=== PATIENT | male | born 1970 | race Caucasian/White ===

== ENCOUNTER 2020-08-23 19:34 | Emergency (ER) | payer OTHER ==
[~2020-08-23] VITALS: Ht 177.8 cm; Wt 86.8 kg
[2020-08-23 20:34] LABS: HEMATOCRIT 45.4 % (42.0-52.0); HEMOGLOBIN 15.7 g/dl (13.5-17.5); MEAN CORPUSCULAR HEMOGLOBIN 30.7 pg (27.0-33.0); MEAN CORPUSCULAR HGB CONC 34.6 g/dl (32.0-36.5); MEAN CORPUSCULAR VOLUME 88.7 fl (80.0-96.0); PLATELET COUNT, AUTOMATED 213 10^3/uL (150-450); RED BLOOD COUNT 5.12 10^6/uL (4.30-6.10); WHITE BLOOD COUNT 10.3 10^3/uL (4.0-10.0)
[2020-08-23 21:07] LABS: AMPHETAMINES LEVEL URINE NEGATIVE (NEGATIVE); BARBITURATES URINE NEGATIVE (NEGATIVE); BENZODIAZEPINES URINE NEGATIVE (NEGATIVE); CANNABINOIDS URINE NEGATIVE (NEGATIVE); COCAINE METABOLITE URINE NEGATIVE (NEGATIVE); METHADONE URINE NEGATIVE (NEGATIVE); OPIATES URINE NEGATIVE (NEGATIVE); PHENCYCLIDINE URINE NEGATIVE (NEGATIVE)
[2020-08-23 21:08] LABS: ACETAMINOPHEN LEVEL < 2.0 UG/ML (10.0-30.0); ALBUMIN 4.2 GM/DL (3.2-5.2); ALT/SGPT 45 U/L (12-78); BILIRUBIN,DIRECT 0.2 MG/DL (0.0-0.2); BILIRUBIN,TOTAL 0.9 MG/DL (0.2-1.0); BLOOD UREA NITROGEN 16 MG/DL (7-18); CALCIUM LEVEL 9.2 MG/DL (8.5-10.1); CARBON DIOXIDE LEVEL 28 MEQ/L (21-32); CHLORIDE LEVEL 104 MEQ/L (98-107); CREATININE FOR GFR 1.09 MG/DL (0.70-1.30); ETHYL ALCOHOL (ETHANOL) < 0.003 % (0.000-0.010); GLOMERULAR FILTRATION RATE > 60.0 (>60); GLUCOSE, FASTING 110 MG/DL (70-100); POTASSIUM SERUM 4.1 MEQ/L (3.5-5.1); SALICYLATE LEVEL < 1.7 MG/DL (5.0-30.0); SODIUM LEVEL 139 MEQ/L (136-145); TOTAL PROTEIN 7.3 GM/DL (6.4-8.2)
[2020-08-23 23:06] VITALS: BP 143/87
== END 2020-08-23 23:07 | disposition home or self-care (01) ==
LOC: M ED 19:34
DX: Z04.6 Encounter for general psychiatric examination, requested by authority (principal); F43.10 Post-traumatic stress disorder, unspecified; Z88.0 Allergy status to penicillin; Z88.1 Allergy status to other antibiotic agents

== ENCOUNTER → 2021-02-23 | Outpatient (CLI) | payer OTHER ==
--- NOTE | 2021-02-24 14:14 | SLEEPCENT ---
DATE: 02/23/2021 ORDERED BY: BENNETT Sol Nocturnal polysomnography was performed for the titration of pressure therapy in this patient with obstructive sleep apnea syndrome, apnea-hypopnea index of 62.7. For testing a ResMed AirFit F20 full face mask of large size was used, 4 cm of water pressure were applied to the circuit, and the lights were extinguished. Eight hours and 15 minutes of data were reviewed. There were 447.5 minutes of sleep identified. Sleep latency was normal at 12 minutes. REM latency was mildly prolonged at 136 minutes. Sleep architecture once established was good. There were three REM cycles. Overall sleep efficiency was 90.4%. The electrocardiogram showed a sinus rhythm with an average heart rate of 70 beats per minute. EEG showed normal waveforms for wake and sleep. Respiratory events were fully palliated with CPAP at a pressure of 7. There was some limb activity in the mid portion of the study. Limb movement arousal index was 7.4. IMPRESSION: Obstructive sleep apnea syndrome (G47.33). RECOMMENDATION: Nightly use of pressure therapy 7 cm of water. cc: Felicity Benton
== END ==
LOC: M SLEEP 20:00
PROVIDERS: ATTEND Physician Assistant
DX: G47.33 Obstructive sleep apnea (adult) (pediatric) (principal)

== ENCOUNTER → 2023-02-01 | Day surgery (SDC) | payer OTHER ==
[~2023-02-01] VITALS: Ht 177.8 cm; Wt 90.4 kg
[~2023-02-01] MED LIST: IBUP-1114 PO; KETOROLAC 30 MG/ML 1ML VIAL IV ONE; LIDOCAINE 2% 100MG/5ML SDV (FOR ANES.) As Ordered ONE; NS 1,000 ML IV ONE; SILD50TA PO; propofoL 200 MG/20 ML VIAL As Ordered ONE
[2023-02-01 11:37] VITALS: TEMP 98
[2023-02-01 11:55] VITALS: BP 124/84; O2SAT 99
== END | disposition home or self-care (01) ==
LOC: M OPP 09:31
PROVIDERS: ATTEND Internal Medicine Gastroenterology
DX: Z12.11 Encounter for screening for malignant neoplasm of colon (principal); Z12.12 Encounter for screening for malignant neoplasm of rectum; K64.8 Other hemorrhoids; K57.30 Diverticulosis of large intestine without perforation or abscess without bleeding; Z88.0 Allergy status to penicillin; Z88.1 Allergy status to other antibiotic agents
CPT/HCPCS: 45378; J1885